=== PATIENT | male | born 1975 | race Hispanic/Latino ===

== ENCOUNTER 2024-01-25 21:47 | Emergency (ER) | payer BC ==
[~2024-01-25] VITALS: Ht 175.3 cm; Wt 113.4 kg
[2024-01-25 22:05] LABS: BASOPHILS # (AUTO) 0.1 (0.0-0.1); BASOPHILS % 0.6 % (0.0-1.0); EOSINOPHILS # (AUTO) 0.2 (0.0-0.4); EOSINOPHILS % 1.5 % (0.0-6.0); HEMATOCRIT 47.9 % (38.2-49.6); HEMOGLOBIN 15.6 g/dL (14.0-18.0); MEAN CORPUSCULAR HGB CONC 32.6 g/dL (31-35); MONOCYTES % 9.3 % (4.4-11.3); NEUTROPHILS # (AUTO) 6.4 (2.1-6.9); PLATELET COUNT 228 x10e3/uL (140-360); RED BLOOD COUNT 5.38 x10e6/uL (4.3-5.7); RED CELL DISTRIBUTION WIDTH 13.8 % (11.7-14.4); WHITE BLOOD COUNT 10.66 x10e3/uL (4.8-10.8)
[2024-01-25 22:24] LABS: ALANINE AMINOTRANSFERASE 41 IU/L (0-55); ALBUMIN/GLOBULIN RATIO 1.3 (0.8-2.0); ALKALINE PHOSPHATASE 79 IU/L (40-150); ANION GAP 14.8 mmol/L (8-16); BILIRUBIN,TOTAL 0.8 mg/dL (0.2-1.2); BLOOD UREA NITROGEN 12 mg/dL (7-26); BUN/CREATININE RATIO 10 (6-25); CALCIUM 9.2 mg/dL (8.4-10.2); CARBON DIOXIDE 22 mmol/L (22-29); CHLORIDE 103 mmol/L (98-107); CREATINE KINASE 130 IU/L (30-200); CREATININE, SERUM 1.18 mg/dL (0.72-1.25); EST GLOMERULAR FILTRATION RATE 75 ML/MIN (>=60); GLUCOSE 141 mg/dL (74-118); POTASSIUM 3.8 mmol/L (3.5-5.1); SODIUM 136 mmol/L (136-145); TOTAL PROTEIN 7.1 g/dL (6.5-8.1)
[2024-01-25 22:41] LABS: TROPONIN I < 0.001 ng/mL (0-0.300)
[2024-01-25 23:05] VITALS: PULSE 81; RESP 15; TEMP 98.5; O2SAT 98
== END 2024-01-25 23:05 | disposition home or self-care (01) ==
LOC: ER 21:55
DX: R00.2 Palpitations (principal); Z11.52 Encounter for screening for COVID-19; R94.31 Abnormal electrocardiogram [ECG] [EKG]
CPT/HCPCS: 0223U; 36415; 71045; 80053; 82550; 83690; 83880; 84484; 85025; 93005; 99284

== ENCOUNTER 2024-04-12 14:03 | Inpatient (IN) | payer BC ==
[~2024-04-12] VITALS: Ht 175.3 cm; Wt 112.5 kg
[2024-04-12] MEDS: DILTIAZEM HCL 5 MG/ML 5 ML VIAL IV ONE (14:31)
[2024-04-12] MEDS: SODIUM CHLORIDE FLUSH 10 ML SYR IV PRN (14:31)
[2024-04-12 14:37] LABS: BASOPHILS # (AUTO) 0.1 (0.0-0.1); BASOPHILS % 0.7 % (0.0-1.0); EOSINOPHILS # (AUTO) 0.1 (0.0-0.4); EOSINOPHILS % 1.5 % (0.0-6.0); HEMATOCRIT 49.8 % (38.2-49.6); HEMOGLOBIN 16.2 g/dL (14.0-18.0); LYMPHOCYTES # (AUTO) 2.7 (1.0-3.2); LYMPHOCYTES % 30.8 % (18.0-39.1); MEAN CORPUSCULAR HEMOGLOBIN 28.8 pg (28-32); MEAN CORPUSCULAR HGB CONC 32.5 g/dL (31-35); MEAN CORPUSCULAR VOLUME 88.6 fL (81-99); MONOCYTES # (AUTO) 0.9 (0.2-0.8); MONOCYTES % 9.7 % (4.4-11.3); NEUTROPHILS % 56.6 % (38.7-80.0); PLATELET COUNT 249 x10e3/uL (140-360); RED BLOOD COUNT 5.62 x10e6/uL (4.3-5.7); RED CELL DISTRIBUTION WIDTH 13.6 % (11.7-14.4); WHITE BLOOD COUNT 8.86 x10e3/uL (4.8-10.8)
[2024-04-12 15:00] LABS: ALBUMIN 4.1 g/dL (3.5-5.0); ALBUMIN/GLOBULIN RATIO 1.6 (0.8-2.0); ANION GAP 14.1 mmol/L (8-16); BILIRUBIN,TOTAL 1.4 mg/dL (0.2-1.2); CALCIUM 9.6 mg/dL (8.4-10.2); CREATININE, SERUM 0.84 mg/dL (0.72-1.25); POTASSIUM 4.1 mmol/L (3.5-5.1); TOTAL PROTEIN 6.7 g/dL (6.5-8.1)
[2024-04-12 15:05] LABS: TROPONIN I 0.002 ng/mL (0-0.300)
[2024-04-12] MEDS ORDERED: SODIUM CHLORIDE FLUSH 10 ML SYR INJ PRN (15:15)
[2024-04-12] MEDS ORDERED: ONDANSETRON HCL INJ 2MG/ML 2ML 2 MG/ML VIAL IV PRN (15:15)
[2024-04-12] MEDS: ASPIRIN 81 MG CHEW TAB PO ONE (16:18)
[2024-04-12] MEDS: DILTIAZEM HCL 30 MG TAB PO SCH ×2 (16:18→22:04)
[2024-04-12 18:14] VITALS: TEMP 98
[2024-04-12 19:00] VITALS: PULSE 115; RESP 23
[2024-04-12 20:00] VITALS: BP_SYST 122; BP_SYST 127; BP_DIAS 89; BP_DIAS 94; PULSE 82; PULSE 85; RESP 16; RESP 18; TEMP 98.1; TEMP 98.4; O2SAT 97; O2SAT 98
[2024-04-12 21:00] VITALS: BP 122/89; PULSE 85; RESP 18; TEMP 98.1; O2SAT 98
[2024-04-12] MEDS: METOPROLOL TARTRATE INJ 1 MG/ML VIAL IV PRN (22:44)
[2024-04-12] MEDS: METOPROLOL TARTRATE INJ 1 MG/ML VIAL ONE (22:50)
[2024-04-12 23:51] VITALS: BP 111/72; PULSE 72; RESP 18; TEMP 97.7; O2SAT 98
[2024-04-13 04:07] VITALS: BP 118/72; PULSE 67; RESP 20; TEMP 97.7; O2SAT 100
[2024-04-13 05:12] LABS: BASOPHILS # (AUTO) 0.1 (0.0-0.1); BASOPHILS % 0.7 % (0.0-1.0); EOSINOPHILS # (AUTO) 0.3 (0.0-0.4); EOSINOPHILS % 2.7 % (0.0-6.0); HEMATOCRIT 46.6 % (38.2-49.6); HEMOGLOBIN 15.3 g/dL (14.0-18.0); LYMPHOCYTES # (AUTO) 3.3 (1.0-3.2); LYMPHOCYTES % 34.4 % (18.0-39.1); MEAN CORPUSCULAR HEMOGLOBIN 28.7 pg (28-32); MEAN CORPUSCULAR HGB CONC 32.8 g/dL (31-35); MEAN CORPUSCULAR VOLUME 87.3 fL (81-99); MONOCYTES # (AUTO) 1.2 (0.2-0.8); MONOCYTES % 12.4 % (4.4-11.3); NEUTROPHILS # (AUTO) 4.7 (2.1-6.9); PLATELET COUNT 250 x10e3/uL (140-360); RED BLOOD COUNT 5.34 x10e6/uL (4.3-5.7); WHITE BLOOD COUNT 9.66 x10e3/uL (4.8-10.8)
[2024-04-13] MEDS ORDERED: ELIQUIS5 MG (05:30)
[2024-04-13 05:47] LABS: ALBUMIN 3.7 g/dL (3.5-5.0); ALBUMIN/GLOBULIN RATIO 1.4 (0.8-2.0); ANION GAP 12.8 mmol/L (8-16); BILIRUBIN,TOTAL 1.1 mg/dL (0.2-1.2); CALCIUM 9.1 mg/dL (8.4-10.2); CREATININE, SERUM 0.93 mg/dL (0.72-1.25); POTASSIUM 3.8 mmol/L (3.5-5.1); TOTAL PROTEIN 6.4 g/dL (6.5-8.1)
[2024-04-13 06:16] LABS: TROPONIN I 0.011 ng/mL (0-0.300)
[2024-04-13 07:54] VITALS: BP 119/82; PULSE 66; RESP 18; TEMP 97.6; O2SAT 98
[2024-04-13 08:00] VITALS: BP 119/82; PULSE 66; RESP 18; TEMP 97.6; O2SAT 98
[2024-04-13] MEDS: APIXABAN 5 MG TABLET PO SCH (08:45)
[2024-04-13 14:06] VITALS: BP 120/71; PULSE 72; RESP 18; TEMP 98; O2SAT 98
[2024-04-13 15:04] LABS: TROPONIN I 0.003 ng/mL (0-0.300)
[2024-04-14] MEDS ORDERED: DILTIAZEM HCL ER 120 MG CAP PO SCH (09:00)
== END 2024-04-13 18:02 | disposition home or self-care (01) | DRG 310 ==
LOC: ER 14:07 → ERHOLD 15:15 → MED/SURG 20:09
PROVIDERS: ADMIT Internal Medicine; ATTEND Internal Medicine
DX: I48.0 Paroxysmal atrial fibrillation (principal); I48.92 Unspecified atrial flutter; Z79.01 Long term (current) use of anticoagulants; I44.0 Atrioventricular block, first degree; R07.89 Other chest pain; G47.33 Obstructive sleep apnea (adult) (pediatric); E66.9 Obesity, unspecified; Z68.36 Body mass index [BMI] 36.0-36.9, adult
CPT/HCPCS: 36415; 71045; 80053; 82550; 84484; 85025; 93005; 93306; 94760; 99252; 99284

== ENCOUNTER 2024-04-21 11:55 | Emergency (ER) | payer BC ==
[~2024-04-21] VITALS: Ht 175.3 cm; Wt 110.2 kg
[~2024-04-21 11:55] MED LIST: ELIQUIS5 MG
[2024-04-21 12:01] VITALS: TEMP 98.2
[2024-04-21 12:21] VITALS: BP 148/102; PULSE 115
[2024-04-21] MEDS: METOPROLOL TARTRATE INJ 1 MG/ML VIAL IV ONE (12:21)
[2024-04-21 12:38] LABS: BASOPHILS # (AUTO) 0.1 (0.0-0.1); BASOPHILS % 0.6 % (0.0-1.0); EOSINOPHILS # (AUTO) 0.1 (0.0-0.4); EOSINOPHILS % 1.4 % (0.0-6.0); HEMATOCRIT 49.4 % (38.2-49.6); HEMOGLOBIN 15.9 g/dL (14.0-18.0); LYMPHOCYTES # (AUTO) 2.5 (1.0-3.2); LYMPHOCYTES % 29.2 % (18.0-39.1); MEAN CORPUSCULAR HEMOGLOBIN 28.5 pg (28-32); MEAN CORPUSCULAR HGB CONC 32.2 g/dL (31-35); MEAN CORPUSCULAR VOLUME 88.7 fL (81-99); MONOCYTES # (AUTO) 0.9 (0.2-0.8); MONOCYTES % 10.2 % (4.4-11.3); NEUTROPHILS # (AUTO) 4.9 (2.1-6.9); NEUTROPHILS % 57.7 % (38.7-80.0); PLATELET COUNT 236 x10e3/uL (140-360); RED BLOOD COUNT 5.57 x10e6/uL (4.3-5.7); RED CELL DISTRIBUTION WIDTH 13.7 % (11.7-14.4); WHITE BLOOD COUNT 8.55 x10e3/uL (4.8-10.8)
[2024-04-21 13:06] LABS: ALBUMIN 4.1 g/dL (3.5-5.0); ALBUMIN/GLOBULIN RATIO 1.4 (0.8-2.0); ANION GAP 15.1 mmol/L (8-16); BILIRUBIN,TOTAL 1.4 mg/dL (0.2-1.2); CALCIUM 9.6 mg/dL (8.4-10.2); CREATININE, SERUM 0.85 mg/dL (0.72-1.25); POTASSIUM 4.1 mmol/L (3.5-5.1); TOTAL PROTEIN 7.1 g/dL (6.5-8.1)
[2024-04-21 13:13] LABS: TROPONIN I 0.006 ng/mL (0-0.300)
[2024-04-21] MEDS ORDERED: METOPROLOL TART25 MG PO (13:13)
[2024-04-21 13:33] VITALS: PULSE 83; RESP 18; O2SAT 100
== END 2024-04-21 13:48 | disposition home or self-care (01) ==
LOC: ER 12:05
DX: R07.89 Other chest pain (principal); I48.20 Chronic atrial fibrillation, unspecified; R94.31 Abnormal electrocardiogram [ECG] [EKG]
CPT/HCPCS: 36415; 71045; 80053; 83880; 84484; 85025; 93005; 99284